=== PATIENT | female | born 1980 | race Two or more races ===

== ENCOUNTER → 2017-01-27 | Outpatient (CLI) | payer OTHER ==
[~2017-01-27] MED LIST: None per pt
== END ==
LOC: STAR 13:01
PROVIDERS: ATTEND Surgery
DX: Z02.9 Encounter for administrative examinations, unspecified (principal)

== ENCOUNTER 2017-01-31 06:13 | Day surgery (SDC) | payer OTHER ==
[~2017-01-31] VITALS: Ht 152.4 cm; Wt 59.5 kg
[2017-01-31] MEDS ORDERED: LIDOCAINE 1%, 2ML ONE (06:38)
[2017-01-31 06:45] LABS: HCG UR LOT HCG7030192
[2017-01-31] MEDS ORDERED: MIDAZOLAM 1 MG/ML, 2ML ONE (06:49)
[2017-01-31] MEDS ORDERED: SUCCINYLCHOLINE 20 MG/ML, 10ML ONE (06:49)
[2017-01-31] MEDS ORDERED: PROPOFOL 10 MG/ML, 20ML ONE ×2 (06:49)
[2017-01-31] MEDS ORDERED: FENTANYL PF 100 MCG/2ML ONE ×2 (06:49)
[2017-01-31] MEDS ORDERED: ONDANSETRON 2MG/ML, 2ML ONE (06:50)
[2017-01-31] MEDS ORDERED: DEXAMETHASONE 4 MG/ML, 1ML ONE ×2 (06:50)
[2017-01-31 06:51] LABS: HCG UR OBC PASS
[2017-01-31] MEDS ORDERED: LIDOCAINE-MPF 2% ,5ML ONE (06:53)
[2017-01-31] MEDS ORDERED: BUPIVACAINE/PF 0.25% ONE (06:54)
[2017-01-31] MEDS ORDERED: BUPIVACAINE/PF 0.5% ONE (06:54)
[2017-01-31] MEDS ORDERED: EPINEPHRINE 1 MG/ML, 1ML ONE (06:55)
[2017-01-31] MEDS ORDERED: LACTATED RINGERS 1,000 ML IV SCH (07:04)
[2017-01-31] MEDS ORDERED: LIDOCAINE 1%, 2ML SQ PRN (07:30)
[2017-01-31] MEDS ORDERED: HYDROmorphone 1 MG/ML, 1ML IV PRN (07:30)
[2017-01-31] MEDS ORDERED: MIDAZOLAM 1 MG/ML, 2ML IV PRN (07:30)
[2017-01-31] MEDS ORDERED: ONDANSETRON 2MG/ML, 2ML IVPush PRN (07:30)
[2017-01-31] MEDS ORDERED: MEPERIDINE/PF 25MG/0.5ML IVPush PRN (07:30)
[2017-01-31] MEDS ORDERED: OXYcodone 5 MG/5 ML ORAL.SOL UDC PO PRN (07:30)
[2017-01-31] MEDS ORDERED: FENTANYL PF 100 MCG/2ML IV PRN (07:30)
[2017-01-31] MEDS ORDERED: PROMETHAZINE 25 MG/ML, 1ML IV PRN (07:30)
[2017-01-31] MEDS ORDERED: CEFAZOLIN 1,000 MG ONE (07:35)
[2017-01-31] MEDS ORDERED: OXYcodone 5 MG/5 ML ORAL.SOL UDC ONE (08:56)
== END 2017-01-31 10:35 ==
LOC: OUT 06:13 → MERGE 07:30 → OUT 10:35
PROVIDERS: ATTEND Surgery
DX: D17.1 Benign lipomatous neoplasm of skin and subcutaneous tissue of trunk (principal); Z72.89 Other problems related to lifestyle
CPT/HCPCS: 21931; 81025; 88304; J0171; J0330; J0690; J1100; J2250; J2405; J2704; J3010; J3490; J7120; 88305